=== PATIENT | male | born 1950 | race Hispanic/Latino ===

== ENCOUNTER → 2018-02-03 | Outpatient (CLI) | payer MEDICARE, MEDICAID ==
[2018-02-03 17:07] LABS: BASOPHIL % 0.3 % (0.0-0.2); EOSINOPHIL # 0.3 10^3/uL (0.0-0.2); EOSINOPHIL % 3.8 % (0.0-5.0); HEMOGLOBIN 14.2 g/dL (13.9-16.3); LYMPHOCYTES # 1.5 10^3/uL (1.0-4.8); LYMPHOCYTES % 19.5 % (24.0-44.0); MEAN CELL HGB 29.9 pg (26-34); MEAN CELL HGB CONCENTRATION 33.2 g/dL (33-37); MEAN CORP VOLUME 90.1 fL (78-100); MEAN PLATELET VOLUME 10.6 fL (7.8-11.0); MONOCYTES # 0.7 10^3/uL (0.3-0.8); MONOCYTES % 9.7 % (5.0-12.0); NEUTROPHIL # 5.1 10^3/uL (1.8-7.7); NEUTROPHILS % 66.4 % (41.0-85.0); RED CELL DISTRIBUTION WIDTH 13.5 % (11.5-14.5); WHITE BLOOD CELL 7.7 10^3/uL (4.5-11.0)
== END | disposition home or self-care (01) ==
LOC: NPLAB 16:37 → EDBD 16:37
PROVIDERS: ATTEND Internal Medicine
DX: I10 Essential (primary) hypertension (principal); F20.0 Paranoid schizophrenia; F06.8 Other specified mental disorders due to known physiological condition; F10.20 Alcohol dependence, uncomplicated; F79 Unspecified intellectual disabilities; F63.81 Intermittent explosive disorder; M62.81 Muscle weakness (generalized); N40.1 Benign prostatic hyperplasia with lower urinary tract symptoms; R27.9 Unspecified lack of coordination; R41.81 Age-related cognitive decline
CPT/HCPCS: 82565; 85025

== ENCOUNTER → 2020-11-02 | Outpatient (CLI) | payer MEDICARE, MEDICAID ==
[2020-11-02 19:45] LABS: CALCIUM 8.8 mg/dL (8.4-10.5); CARBON DIOXIDE 24.8 mmol/L (20.0-32)
[2020-11-02 19:47] LABS: BILIRUBIN,URINE NEGATIVE (NEGATIVE); UA COLOR YELLOW
[2020-11-02 19:49] LABS: BASOPHIL % 0.7 % (0.0-0.2); EOSINOPHIL # 0.1 10^3/uL (0.0-0.2); EOSINOPHIL % 3.5 % (0.0-5.0); LYMPHOCYTES # 1.06 10^3/uL1 (1.0-4.8); LYMPHOCYTES % 26.4 % (24.0-44.0); MEAN CORP HGB 31.3 pg (26-34); MONOCYTES # 0.9 10^3/uL (0.3-0.8); MONOCYTES % 23.4 % (5.0-12.0); NEUTROPHIL # 1.9 10^3/uL (1.8-7.7); PLATELET COUNT 84 10^3/uL (150-400); RED CELL DISTRIBUTION WIDTH 14.5 % (11.5-14.5)
== END | disposition home or self-care (01) ==
LOC: LAB 19:33
PROVIDERS: ATTEND Internal Medicine
DX: N40.1 Benign prostatic hyperplasia with lower urinary tract symptoms (principal); I10 Essential (primary) hypertension; R29.90 Unspecified symptoms and signs involving the nervous system; M62.81 Muscle weakness (generalized); M25.50 Pain in unspecified joint
CPT/HCPCS: 36415; 80053; 81003; 83880; 84153; 84439; 84443; 84479; 85025

== ENCOUNTER → 2022-01-02 | Outpatient (CLI) | payer MEDICARE, MEDICAID ==
[2022-01-02 15:05] LABS: BILIRUBIN,URINE NEGATIVE (NEGATIVE)
== END | disposition home or self-care (01) ==
LOC: NPLAB 14:39
PROVIDERS: ATTEND Internal Medicine
DX: N39.0 Urinary tract infection, site not specified (principal)
CPT/HCPCS: 81001; 87086

== ENCOUNTER → 2022-10-19 | Outpatient (CLI) | payer MEDICARE, MEDICAID ==
[2022-10-19 09:06] LABS: BILIRUBIN,URINE NEGATIVE (NEGATIVE); LEUKOCYTE ESTERASE ,URINE NEGATIVE (NEGATIVE); NITRATE,URINE NEGATIVE (NEGATIVE)
[2022-10-19 09:07] LABS: APPEARANCE,URINE CLEAR; UA COLOR YELLOW
== END | disposition home or self-care (01) ==
LOC: NPLAB 08:48
PROVIDERS: ATTEND Internal Medicine
DX: N39.0 Urinary tract infection, site not specified (principal); Z11.59 Encounter for screening for other viral diseases
CPT/HCPCS: 81003; 87086

== ENCOUNTER → 2023-09-04 | Outpatient (CLI) | payer MEDICARE, MEDICAID ==
[2023-09-04 18:57] LABS: BASOPHIL % 0.3 % (0.0-0.2); EOSINOPHIL # 0.1 10^3/uL (0.0-0.2); EOSINOPHIL % 0.9 % (0.0-5.0); HEMATOCRIT(ML) 41.1 % (37.0-53.0); HEMOGLOBIN 13.7 g/dL (13.9-16.3); LYMPHOCYTES % 25.5 % (24.0-44.0); MEAN CORP HGB CONCENTRATION 33.3 g/dL (33-36.5); MONOCYTES # 1.1 10^3/uL (0.3-0.8); MONOCYTES % 15.2 % (5.0-12.0); NEUTROPHIL # 4.1 10^3/uL (1.8-7.7); NEUTROPHILS % 57.8 % (41.0-85.0); PLATELET COUNT 209 10^3/uL (150-400); RED BLOOD CELL 4.42 10^6/uL (4.50-5.90); WHITE BLOOD CELL 7.1 10^3/uL (4.5-11.0)
[2023-09-04 19:01] LABS: +ADD MANUAL DIFF(NO CHRG) NO
[2023-09-04 19:02] LABS: BILIRUBIN,URINE NEGATIVE (NEGATIVE); LEUKOCYTE ESTERASE ,URINE NEGATIVE (NEGATIVE); NITRATE,URINE NEGATIVE (NEGATIVE)
[2023-09-04 19:10] LABS: APPEARANCE,URINE CLEAR; UA COLOR YELLOW
[2023-09-04 19:13] LABS: ALBUMIN(ML) 3.1 g/dL (3.4-5.0); ALBUMIN/GLOBULIN RATIO 0.794; ANION GAP 13.1; BUN/CREATININE RATIO 18.18 (10.0-20.0); CALCIUM 8.8 mg/dL (8.4-10.5); CARBON DIOXIDE 27.8 mmol/L (20.0-32); CREATININE SERUM 0.66 mg/dL (0.59-1.40); EST GFR, NON-AA 118.3 (>/=60); POTASSIUM 3.9 mmol/L (3.6-5.2)
== END | disposition home or self-care (01) ==
LOC: NPLAB 18:22
PROVIDERS: ATTEND Internal Medicine
DX: I10 Essential (primary) hypertension (principal); N40.1 Benign prostatic hyperplasia with lower urinary tract symptoms
CPT/HCPCS: 36415; 80053; 81003; 85025

== ENCOUNTER → 2023-11-28 | Outpatient (CLI) | payer MEDICARE, MEDICAID | END | disposition home or self-care (01) | LOC: RAD 16:27 | PROVIDERS: ATTEND Orthopaedic Surgery | DX: S42.92XA Fracture of left shoulder girdle, part unspecified, initial encounter for closed fracture (principal); M25.712 Osteophyte, left shoulder; X58.XXXA Exposure to other specified factors, initial encounter; Y93.89 Activity, other specified; Y92.89 Other specified places as the place of occurrence of the external cause; Y99.8 Other external cause status | CPT/HCPCS: 73030-LT ==